=== PATIENT | female | born 1955 | race Caucasian/White ===

== ENCOUNTER → 2016-08-24 | Outpatient (CLI) | payer BC ==
[~2016-08-24] MED LIST: DCS100C PO; IBP600T1 PO; LEVO200T30 PO; OXYC-12 PO
--- OUTSIDE RECORDS SUMMARY | 2016-08-24 11:23 | XMS REPORT | Continuity of Care Document ---
Author Author [facility] Organization [facility] Address Unknown Phone Unavailable Care Team Providers Care Insurance Agency Manager Name Role Phone AliciaKishor collins PCP [phone] Source Comments Some departments are not documenting in the electronic medical record. If you do not see the information that you expected, contact Release of Information in the Health Information Management department at [phone] for further assistance in locating additional records.[facility] Active Allergies and Adverse Reactions Allergen Noted Date Severity Reactions Comments Codeine 07/12/2012 SEE COMMENTS Makes her deathly sick Current Medications Prescription Sig. Disp. Refills Start End Date Status Date levothyroxine (SYNTHROID) Take 200 mcg by mouth Active 200 mcg tablet daily. solifenacin(+) (VESICARE) Take 10 mg by mouth Active 10 mg tablet daily. ibuprofen (MOTRIN) 200 mg Take 200 mg by mouth as Active tablet Needed. 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 Slade is a 56 yo, female who [facility]2012 for evaluation of an abnormal finding on mammogram. Screening mammograms 10/13/11 ([facility]) showed development of a 7mm well-defined oval density in the medial aspect of the left breast, about 7.5cm deep to the nipple.The right breast was stable. Left diagnostic mammogram 10/25/11 showed several, well circumscribed, densities and a density at the 10:00 position had the appearance of a complex cyst. An ultrasound was also done at this time (report unavailable) and these densities appeared to be benign and 6 month follow-up with ultrasound was recommended. Left breast ultrasound 05/15/12 showed scattered simple-appearing cysts, and a 9mm lobulated lesion at 8:00, zone B. A 10:00 lesions was also noted. Another 6 months follow-up with ultrasound was recommended. Repeat left breast ultrasound 06/28/12 ([facility]) showed multiple small cysts at 10:00 and a 1cm area of subtle irregularity that is solid with multiple linear projections at 8:00, 5 cm FTN. Sono-guided biopsy of this 8:00 area revealed focal atypical ductal hyperplasia with fibrocystic changes, including dense fibrosis. PERTINENT PMH: Thyroid cancer dx in 2003 (s/p thyroidectomy) HAND PAINTER HISTORY: , first live at 19, menarche at 14, VIKY at 41 due to excessive bleeding, menopause at [age]. Hx of vaginal estrogen use x 1 month. FAMILY HISTORY: Mother with breast cancer at 69 (reportedly BRCA negative), maternal grandmother with breast cancer at 62, niece (sister's daughter) with breast cancer at 38 (reportedly BRCA +), and 3 maternal great aunts with breast cancer in their 60's. Father with prostate cancer in his late 60's (. PHYSICAL EXAM on PRESENTATION: Normal exam. REFERRED BY: Dr. Claribel Harrington Social History Tobacco Use Types Packs/Day Years Used Date Never Smoker Smokeless Tobacco: Never Used Alcohol Use Drinks/Week oz/Week Comments Yes rare Last Filed Vital Signs Vital Sign Reading Time Taken Blood Pressure 120/64 12/09/2013 10:05 AM CDT Pulse 60 12/09/2013 10:05 AM CDT Temperature 36.8 C (98.3 F) 12/09/2013 10:05 AM CDT Respiratory Rate 18 12/09/2013 10:05 AM CDT Height 1.664 m (5' 5.5") 12/09/2013 10:05 AM CDT Weight 81.012 kg (178 lb 9.6 oz) 12/09/2013 10:05 AM CDT Body Mass Index 29.26 12/09/2013 10:05 AM CDT Oxygen Saturation 97% 09/06/2012 8:38 AM CDT Plan of Care Health Maintenance Due Date Last Done Comments Physical (Comprehensive) 1964 Exam Pertussis Vaccine 1968 Tetanus Vaccine 1974 Cervical Cancer Screening 1978 Colorectal Cancer 10/18/2007 Screening Breast Cancer Screening 12/10/2015 12/09/2013, 12/04/2012 Influenza Vaccine 02/11/2016 Results from Last 3 Months Not on file
--- NOTE | 2016-08-26 18:31 | Diagnostic Imaging Report ---
Bilateral screening mammogram The current study was also evaluated with a Computer Aided Detection (CAD) system. Indication: Screening. No current complaints stated on the questionnaire. COMPARISON: 02/27/15. FINDINGS: The breasts are composed of scattered fibroglandular densities. Surgical clips are seen from prior lumpectomy in the left breast. Scattered nodular densities in the right breast demonstrate no significant change. Allowing for technique and positional differences, no suspicious change is seen. IMPRESSION: No significant change. ACR BI-RADS Category 2: Benign findings. Result letter will be mailed to the patient. Note: At least 10% of breast cancer is not imaged by mammography. Dictated by: Dictated on workstation # [id number]
== END ==
LOC: RAD 11:18
PROVIDERS: ATTEND Nurse Practitioner
DX: Z12.31 Encounter for screening mammogram for malignant neoplasm of breast (principal)
CPT/HCPCS: 77067

== ENCOUNTER → 2018-02-16 | Outpatient (CLI) | payer BC ==
--- NOTE | 2018-02-16 14:09 | Diagnostic Imaging Report ---
INDICATION: Routine screening. Comparison is made with prior mammograms from 08/24/2016 and 02/27/2015. 2-D and 3-D bilateral screening mammography was performed. The current study was also evaluated with a Computer Aided Detection (CAD) system. FINDINGS: Fibronodular parenchymal pattern is again noted. This appears to be stable. There are surgical clips in the medial left breast from prior lumpectomy. No new mass or malignant-appearing microcalcifications are seen. The axillae are unremarkable. IMPRESSION: No mammographic features suspicious for malignancy are identified. ACR BI-RADS Category 2: Benign findings. Result letter will be mailed to the patient. Note: At least 10% of breast cancer is not imaged by mammography. Dictated by: Dictated on workstation # [id number]
== END ==
LOC: RAD 08:36
PROVIDERS: ATTEND Nurse Practitioner
DX: Z12.31 Encounter for screening mammogram for malignant neoplasm of breast (principal); Z98.890 Other specified postprocedural states
CPT/HCPCS: 77067

== ENCOUNTER → 2020-12-31 | Outpatient (CLI) | payer BC, OTHER ==
--- NOTE | 2021-01-01 10:22 | Diagnostic Imaging Report ---
Indication: 2-D and 3-D digital screening with CAD. Compared: 02/2018, 08/2016 and 02/2015 Findings: Stable benign postsurgical changes, calcifications and small circumscribed benign masses bilaterally greater right unchanged. No new, spiculated or suspicious breast mass. No architectural distortion or spiculated lesion. No suspicious calcifications. IMPRESSION: Stable benign findings BI-RADS Category 2 ACR BI-RADS Category 2: Benign findings. Result letter will be mailed to the patient. Note: At least 10% of breast cancer is not imaged by mammography. Dictated by: Dictated on workstation # [id number]
== END ==
LOC: RAD 14:45
PROVIDERS: ATTEND Nurse Practitioner Family
DX: Z12.31 Encounter for screening mammogram for malignant neoplasm of breast (principal)
CPT/HCPCS: 77063; 77067

== ENCOUNTER → 2021-06-17 | Outpatient (CLI) | payer OTHER ==
[~2021-06-17] VITALS: Ht 167.7 cm; Wt 86.2 kg
[~2021-06-17] MED LIST changes: +ACETAMINOPHEN 500 MG TAB (TYLENOL) PO PRN; +EPINEPHrine INJECTION 1 MG/ML AMP IM PRN; +ONDANSETRON 4 MG/2 ML (SDV) Z0FRAN IV PRN; +SOTROVIMAB 500 MG/NS 100 ML IVPB IV ONE; +diphenhydrAMINE 50 MG/ML INJ (BENADRYL) IV PRN
[2021-06-17 10:58] VITALS: BP 132/74
[2021-06-17 12:20] VITALS: BP 118/60
== END ==
LOC: INFUSION 10:42
PROVIDERS: ATTEND Nurse Practitioner Family
DX: U07.1 COVID-19 (principal)

== ENCOUNTER → 2022-10-03 | Outpatient (CLI) | payer OTHER ==
[~2022-10-03] MED LIST changes: -ACETAMINOPHEN 500 MG TAB (TYLENOL) PO PRN; -EPINEPHrine INJECTION 1 MG/ML AMP IM PRN; -ONDANSETRON 4 MG/2 ML (SDV) Z0FRAN IV PRN; -SOTROVIMAB 500 MG/NS 100 ML IVPB IV ONE; -diphenhydrAMINE 50 MG/ML INJ (BENADRYL) IV PRN
--- NOTE | 2022-10-03 13:30 | Diagnostic Imaging Report ---
INDICATION: Routine screening. COMPARISON: 12/31/2020 and 02/16/2018. TECHNIQUE: 2D and 3D bilateral screening mammography was performed with CAD. FINDINGS: Scattered fibroglandular densities are identified bilaterally. Benign-appearing nodular densities in both breasts are stable. Surgical clips in the left breast are again noted. No spiculated mass or malignant-appearing microcalcifications are seen. The axillae are unremarkable. IMPRESSION: No mammographic features suspicious for malignancy are identified. ACR BI-RADS Category 2: Benign findings. Result letter will be mailed to the patient. Note: At least 10% of breast cancer is not imaged by mammography. Dictated by: Dictated on workstation # [id number]
== END ==
LOC: RAD 08:05
PROVIDERS: ATTEND Family Medicine
DX: Z12.31 Encounter for screening mammogram for malignant neoplasm of breast (principal)
CPT/HCPCS: 77063; 77067